=== PATIENT | male | born 1990 | race African-American/Black ===

== ENCOUNTER 2022-09-19 10:49 | Emergency (ER) | payer MEDICAID ==
[~2022-09-19] VITALS: Ht 170.2 cm; Wt 68.0 kg
[2022-09-19 10:52] VITALS: O2SAT 100
[2022-09-19] MEDS ORDERED: FAMOTIDINE 20MG/2ML VIAL IV STA (10:53)
[2022-09-19] MEDS ORDERED: ONDANSETRON HCL 4MG/2ML INJ IV STA (10:53)
[2022-09-19] MEDS ORDERED: SODIUM CHLORIDE 0.9% 1,000 ML IV ONE ×2 (11:00→12:00)
[2022-09-19 11:25] LABS: BASOPHILS % 0.6 % (0.0-2.0); EOSINOPHILS % 0.1 % (0.0-5.0); HEMATOCRIT. 42.4 % (42.0-52.0); LYMPHOCYTES % 13.1 % (20.0-50.0); MEAN CORPUSCULAR HEMOGLOBIN 34.3 pg (28.0-32.0); MEAN CORPUSCULAR VOLUME 104.2 fL (80.0-94.0); MEAN PLATELET VOLUME 8.2 fl (7.4-10.4); MONOCYTES % 8.3 % (2.0-8.0); NEUTROPHILS % 77.9 % (40.0-76.0); PLATELET 122 x1000/uL (130-400); RED BLOOD CELL COUNT 4.07 mill/uL (4.7-6.1); RED CELL DISTRIBUTION WIDTH 16.4 % (11.6-14.6)
[2022-09-19 11:32] LABS: CHLORIDE 96 mEq/L (98-107)
[2022-09-19 11:34] LABS: INR 1.5; PROTHROMBIN TIME 15.4 sec (9.6-11.0)
[2022-09-19] MEDS ORDERED: SODIUM BICARBONATE 8.4% 1 MEQ/ML 50ML SYR IV NR (13:15)
[2022-09-19 14:07] LABS: CLARITY URINE CLEAR (CLEAR); COLOR URINE YELLOW (YELLOW); KETONES URINE 4+ (NEGATIVE); LEUKOCYTE ESTERASE URINE NEGATIVE (NEGATIVE); NITRITE URINE NEGATIVE (NEGATIVE); OCCULT BLOOD URINE NEGATIVE (NEGATIVE); PROTEIN URINE 2+ (NEGATIVE); SPECIFIC GRAVITY URINE 1.015 (1.005-1.030)
[2022-09-19 14:20] VITALS: BP 148/88; PULSE 86; RESP 18; TEMP 98.5
== END 2022-09-19 14:36 | disposition short-term general hospital (02) ==
LOC: ER 10:49 → CANBEDREQ 09-21 20:32
DX: E86.0 Dehydration (principal); R11.2 Nausea with vomiting, unspecified; R53.1 Weakness
CPT/HCPCS: 36415; 71045; 80053; 81003; 83690; 84484; 85025; 85610; 96361; 96374; 96375; 99284; J2405; J3490; J7030; Z7610

== ENCOUNTER 2025-02-17 10:19 | Inpatient (IN) | payer MEDICAID ==
[~2025-02-17] VITALS: Ht 185.4 cm; Wt 77.6 kg
[2025-02-17 10:21] VITALS: O2SAT 93
[2025-02-17] MEDS: ONDANSETRON HCL 4MG/2ML INJ IV ONE (11:00)
[2025-02-17] MEDS: MORPHINE SULFATE 4 MG/ML INJ (FOR IV/IM USE) IV ONE (11:00)
[2025-02-17] MEDS: SODIUM CHLORIDE 0.9% 1,000 ML IV ONE (11:01)
[2025-02-17 11:40] LABS: BASOPHILS % 0.6 % (0.0-2.0); EOSINOPHILS % 1.6 % (0.0-5.0); HEMATOCRIT. 40.9 % (42.0-52.0); HEMOGLOBIN. 13.9 g/dL (14.0-18.0); LYMPHOCYTES % 20.4 % (20.0-50.0); MEAN PLATELET VOLUME 9.0 fl (7.4-10.4); MONOCYTES % 12.3 % (2.0-8.0); NEUTROPHILS % 65.1 % (40.0-76.0); PLATELET 83 x1000/uL (130-400); RED BLOOD CELL COUNT 4.33 mill/uL (4.7-6.1); RED CELL DISTRIBUTION WIDTH 15.9 % (11.6-14.6)
[2025-02-17 11:54] LABS: CREATININE 0.9 mg/dL (0.6-1.3); UREA NITROGEN BLOOD 11 mg/dL (9-23)
[2025-02-17 11:56] LABS: ASPARTATE AMINOTRANSFERASE 98 IU/L (<34); BILIRUBIN DIRECT 3.1 mg/dL (<=3.0); BILIRUBIN TOTAL 4.6 mg/dL (0.1-1.0); PROTEIN TOTAL 10.2 g/dL (6.0-8.3)
[2025-02-17 16:00] VITALS: BP 137/92; PULSE 84; RESP 17; TEMP 37.2; O2SAT 97
[2025-02-17] MEDS ORDERED: NALOXONE HCL 0.4MG/ML VIAL IV PRN (16:00)
[2025-02-17] MEDS ORDERED: CLONIDINE 0.1MG TABLET PO PRN (16:45)
[2025-02-17] MEDS ORDERED: ACETAMINOPHEN 325MG TABLET PO PRN (16:45)
[2025-02-17] MEDS ORDERED: MAGNESIUM/ALUMINUM HYDROXIDE/SIMETHICONE 30ML UDC PO PRN (16:45)
[2025-02-17] MEDS ORDERED: LORAZEPAM 2MG/ML UD SYRINGE IV PRN (16:55)
[2025-02-17] MEDS: FLUCONAZOLE 100MG TABLET PO NR (17:50)
[2025-02-17] MEDS: PANTOPRAZOLE SODIUM 40 MG/VIAL IV SCH (17:50)
[2025-02-17] MEDS: TRAMADOL 50MG TABLET PO PRN (18:01)
[2025-02-17 20:00] VITALS: BP 136/79; PULSE 78; RESP 17; TEMP 37.2; O2SAT 99
[2025-02-17] MEDS: ONDANSETRON HCL 4MG/2ML INJ IV PRN (21:10)
[2025-02-18] VITALS (7 sets, daily range): BP systolic 116–149; BP diastolic 74–84; PULSE 68–92; RESP 15–18; TEMP 36.2–37.6; O2SAT 97–98
[2025-02-18 01:33] LABS: CLARITY URINE CLEAR (CLEAR); COLOR URINE DARK YELLOW (YELLOW); GLUCOSE URINE NEGATIVE (NEGATIVE); KETONES URINE 1+ (NEGATIVE); LEUKOCYTE ESTERASE URINE TRACE (NEGATIVE); NITRITE URINE POSITIVE (NEGATIVE); OCCULT BLOOD URINE NEGATIVE (NEGATIVE); PH URINE 7.0 (4.5-8.0); PROTEIN URINE 1+ (NEGATIVE); SPECIFIC GRAVITY URINE 1.020 (1.005-1.030); UROBILINOGEN URINE 2.0 E.U./dL (0.2-1.0)
[2025-02-18 02:20] LABS: *AMPHETAMINES SCREEN URINE NEGATIVE (NEGATIVE); *BARBITURATES SCREEN URINE NEGATIVE (NEGATIVE); *BENZODIAZEPINES SCREEN URINE NEGATIVE (NEGATIVE); *COCAINE SCREEN URINE NEGATIVE (NEGATIVE); CANNABINOID URINE SCREEN PRESUMPTIVE POSITIVE (NEGATIVE); METHADONE URINE SCREEN NEGATIVE (NEGATIVE); OPIATES URINE SCREEN PRESUMPTIVE POSITIVE (NEGATIVE); PHENCYCLIDINE URINE SCREEN NEGATIVE (NEGATIVE)
[2025-02-18 02:21] LABS: ECSTASY MDMA SCREEN URINE NEGATIVE (NEGATIVE)
[2025-02-18 03:42] LABS: SQUAMOUS EPITHELIAL CELL URINE RARE /lpf (RARE/1+)
[2025-02-18 03:43] LABS: BACTERIA URINE NONE SEEN; RBC URINE 0-2 /hpf (0-2); WBC URINE 0-2 /hpf (0-2)
[2025-02-18 07:02] LABS: BASOPHILS % 0.9 % (0.0-2.0); EOSINOPHILS % 2.0 % (0.0-5.0); HEMATOCRIT. 38.1 % (42.0-52.0); HEMOGLOBIN. 12.8 g/dL (14.0-18.0); LYMPHOCYTES % 17.0 % (20.0-50.0); MEAN PLATELET VOLUME 9.2 fl (7.4-10.4); MONOCYTES % 12.9 % (2.0-8.0); NEUTROPHILS % 67.2 % (40.0-76.0); PLATELET 72 x1000/uL (130-400); RED BLOOD CELL COUNT 4.02 mill/uL (4.7-6.1); RED CELL DISTRIBUTION WIDTH 16.1 % (11.6-14.6)
[2025-02-18 07:50] LABS: CREATININE 0.9 mg/dL (0.6-1.3); UREA NITROGEN BLOOD 7 mg/dL (9-23)
[2025-02-18] MEDS: THIAMINE HCL 100MG TABLET PO SCH (09:00)
[2025-02-18] MEDS: FOLIC ACID 1MG TABLET PO SCH (09:42)
[2025-02-18] MEDS: ACETAMINOPHEN 325MG TABLET PO PRN (09:49)
== END 2025-02-18 22:00 | disposition short-term general hospital (02) | DRG 241 ==
LOC: ER 10:19 → 5WST 13:45 → EDBEDREQSVC 13:58 → EDBEDREQ 13:58 → EDBEDREQTM 13:58 → ENRESERV 14:19
PROVIDERS: ADMIT Student in an Organized Health Care Education/Training Program; ATTEND Student in an Organized Health Care Education/Training Program
DX: K29.20 Alcoholic gastritis without bleeding (principal); M87.851 Other osteonecrosis, right femur; K76.6 Portal hypertension; E87.1 Hypo-osmolality and hyponatremia; E88.09 Other disorders of plasma-protein metabolism, not elsewhere classified; M87.852 Other osteonecrosis, left femur; N39.0 Urinary tract infection, site not specified; F10.10 Alcohol abuse, uncomplicated; D64.9 Anemia, unspecified; Z79.899 Other long term (current) drug therapy; Z87.891 Personal history of nicotine dependence; K70.30 Alcoholic cirrhosis of liver without ascites
CPT/HCPCS: 36415; 74176; 76700; 80048; 80076; 80305; 81003; 85025; 96361; 96374; 96375; 99285; A4606; J2270; J2405; J2470; J7030